=== PATIENT | male | born 1950 | race Caucasian/White ===

== ENCOUNTER → 2016-03-12 | Day surgery (SDC) | payer OTHER ==
[~2016-03-12] MED LIST: BUPIVACAINE 0.5% 30 ML SDV ONE; DEXAMETHASONE 4 MG/ML VIAL ONE; GLYCOPYRROLATE 0.2 MG/1 ML VIAL ONE; KETOROLAC 30 MG/1 ML SDV ONE; LIDOCAINE 2% 5 ML SDV ONE; MIDAZOLAM 2 MG/2 ML VIAL ONE; ONDANSETRON 4 MG/2 ML VIAL ONE; PROPOFOL/EMULSION 500 MG/50 ML BOTTLE IV ONE; ROCURONIUM 50 MG/5 ML VIAL ONE; SUGAMMADEX SODIUM 200 MG/2 ML VIAL IVP ONE; ceFAZolin 2 GM/DEXTROSE 100 ML IV ONE; epHEDrine SULFATE 10 MG/ML SYR ONE; fentaNYL 100 MCG/2 ML INJ ONE
[2016-03-12 13:06] LABS: ANION GAP 6 mEq/L (8-16); CARBON DIOXIDE 26 mEq/l (22-31); CHLORIDE 107 mEq/L (97-110); CREATININE 0.8 mg/dL (0.7-1.3); GLOMERULAR FILTRATION RATE > 60; GLUCOSE 89 mg/dL (70-100); POTASSIUM 4.3 mEq/L (3.5-5.2); SODIUM 139 mEq/L (134-144)
--- NOTE | 2016-03-12 13:54 | ECHO ---
[id number] + + [id number] : : [place] [id number] : : [phone] + + Adult Echocardiographic Report + + :Name: LON PAGAN JStudy Date: 03/12/2016 01:01 PM BP: 186/87 mmHg : : Hospital Admission Number: [id number] Location: [facility] 22: :: 1950 Gender: Male Height: 71 in : :Age: 66 yrs Race: WH Weight: 180 lb : :Reason For Study: loud [id number]; r/o : : BSA: 2.0 meters2 : :History: hypertensive and loud murmur pre-op : + + MMode/2D Measurements & Calculations IVSd: 1.1 cm RVDd: 3.8 cm FS: 31.7 % Ao root diam: LVPWd: 0.98 cm LVIDd: 4.6 cm EDV(Teich): 96.1 ml2.9 cm LVIDs: 3.1 cm ESV(Teich): 38.7 ml EF(Teich): 59.8 % LVOT diam: 2.1 cmLVLd ap4: 8.3 cm SV(MOD-sp4): LVOT area: EDV(MOD-sp4): 83.0 ml 3.5 cm2 130.0 ml LVLs ap4: 6.9 cm ESV(MOD-sp4): 47.0 ml EF(MOD-sp4): 63.8 % Normal Measurement Values: + + :LVIDd (3.5-5.7cm) IVSd (0.6-1.1cm) LVPWd (0.6-1.1cm) Aortic Root (2.0-3.7cm)Left Atrium (1.5-4.0cm): :LV Vol(d) (76-115ml) LV Vol(s) (29-48ml) Ejec Fraction (50-65%)PV Lai (0.6- 1.2m/s) TV Lai (0.4-1.0m/s) : :MV E Lai (0.8-1.0m/s)MV A Lai (0.3-1.0m/s)LVOT Lai (0.7-1.2m/s) Asc Ao Lai ( 0.9-1.8m/s) : + + Doppler Measurements & Calculations MV E max lai: Ao V2 max: AI max lai: LV V1 mean P.3 cm/sec 301.6 cm/sec 495.3 cm/sec 4.1 mmHg MV A max lai: Ao max PG: AI max P.1 mmHgLV V1 mean: 43.4 cm/sec 36.4 mmHg AI dec slope: 97.8 cm/sec MV E/A: 1.3 Ao mean P.3 cm/sec2 LV V1 VTI: MV dec time: 20.8 mmHg AI P1/2t: 528.8 msec33.6 cm 0.18 sec Ao V2 mean: 216.6 cm/sec Ao V2 VTI: 72.1 cm KISHA(I,D): 1.6 cm2 SV(LVOT): 118.0 ml PA V2 max: TR max lai: 84.2 cm/sec 185.0 cm/sec PA max PG: TR max P.7 mmHg 2.8 mmHg RAP systole: 5.0 mmHg RVSP(TR): 18.7 mmHg Left Ventricle The left ventricle is normal in size and function. There is borderline concentric left ventricular hypertrophy. Ejection Fraction = 60%. The left ventricular ejection fraction is calculated at 59.8 %. No regional wall motion abnormalities noted. Right Ventricle The right ventricle is normal in size and function. Atria The left atrial size is normal. Right atrial size is normal. Mitral Valve The mitral valve is normal in structure and function. There is mild mitral regurgitation. Tricuspid Valve The tricuspid valve is normal in structure and function. There is no tricuspid stenosis. There is trace to mild tricuspid regurgitation. Right ventricular systolic pressure is 19mmHg. Aortic Valve A bicuspid aortic valve cannot be excluded. Moderate Aortic Valve Calcification. Mild valvular aortic stenosis. Moderate aortic regurgitation. Pulmonic Valve The pulmonic valve is not well visualized. There is no pulmonic valvular regurgitation. Great Vessels The aortic root is normal size. Pericardium/Pleural There is no pericardial effusion. Conclusion A two-dimensional transthoracic echocardiogram with M-mode and Doppler was performed. (1) Left ventricular systolic ejection fraction was normal (60%) - normal wall motion (2) Borderline concentric left ventricular hypertrophy (3) Diastolic function was not assessed (4) Normal right ventricular size and function (5) Normal atrial dimensions (6) Mild mitral regurgitation (7) Uncertain morphology for the aortic valve - could be bicuspid - with mild stenosis, moderate sclerosis, and moderate insufficiency (8) Trace/mild tricuspid regurgitation - RVSP was within normal limits (9) Poor visualization of the pulmonic valve (10) No comparison echocardiograms - would have patient seen by cardiology in three months for reassessment of the valve pathology. Given the inability to visualize the morphology of the aortic valve, would consider SIN Final Reading Physician: Melissa Katz signed on 03/12/2016 01:53 PM Ordering Physician: Nj Swift Performed By: Prachi Carver
--- NOTE | 2016-03-23 20:46 | GOP ---
[f rep st] OPERATIVE REPORT DATE OF OPERATION: 03/12/2016 SURGEON: Nj Swift MD PRODUCTS MECHANICAL DESIGN ENGINEER: ARABELLA Elliott ANESTHESIA: General endotracheal. ANESTHESIOLOGIST: Dr. Stevenson. PREOPERATIVE DIAGNOSIS: Bilateral inguinal hernias. POSTOPERATIVE DIAGNOSIS: Bilateral inguinal hernias. PROCEDURE PERFORMED: Laparoscopic bilateral inguinal hernia repairs. FINDINGS: The patient was found to have bilateral direct defects, right was greater than the left. ESTIMATED BLOOD LOSS: Negligible. DESCRIPTION OF PROCEDURE: Patient taken to the operating room, where he received satisfactory gener al endotracheal anesthesia by Dr. Stevenson, placed in supine position, prepped and draped in the usua l sterile fashion. Infraumbilical incision was made. Dissection was carried down to the rectus sheath, which was incis ed. A subfascial tunnel was developed in the preperitoneal space. That was dissected free with a b alloon dissector, which was replaced with a CO2 insufflation trocar. Two other trocars were placed in the midline under direct vision. Fish's ligament was exposed bilaterally. The cords were mobilized bilaterally. Peritoneum was di ssected off the cord structures. There were no indirect sacs. Bilateral direct defects were expose d. Their contents were emptied. Bilateral Covidien polyester mesh patches were placed over the ing uinal floors and anchored in place with AbsorbaTack, securing them to Fish's ligament, the lacunar ligament, the anterior abdominal wall, and the lateral abdominal wall outside the internal ring. H emostasis was assured. Trocars were removed under direct vision, releasing the pneumopreperitoneum. Trocar sites were clos ed with 0 Vicryl for the fascia, 4-0 Monocryl subcuticular stitch for the skin. All layers were inf iltrated with 0.5% Marcaine. He was taken recovery room in good condition. There were no complications. /[id number]/MODL
== END | disposition home or self-care (01) ==
LOC: FSGY 09:46
PROVIDERS: ATTEND Surgery
PROC: 0YUA4JZ Supplement Bilateral Inguinal Region with Synthetic Substitute, Percutaneous Endoscopic Approach (ICD-10-PCS; principal; 2016-03-12 11:30)
DX: K40.91 Unilateral inguinal hernia, without obstruction or gangrene, recurrent (principal); K40.90 Unilateral inguinal hernia, without obstruction or gangrene, not specified as recurrent; I10 Essential (primary) hypertension
CPT/HCPCS: 49650; 49651; 93306; C1727; C1781; J0690; J1100; J1885; J2250; J2405; J2704; J3010

== ENCOUNTER 2017-07-16 19:56 | Observation (INO) | payer OTHER ==
[2017-07-16 20:28] LABS: PLATELET COUNT 199 10^3/uL (150-400)
--- NOTE | 2017-07-16 20:36 | EDPHY ---
H & P Smoking Status: Former smoker Time Seen by Provider: 07/16/17 20:09 HPI/ROS: CHIEF COMPLAINT: Rectal bleeding HISTORY OF PRESENT ILLNESS: 67-year-old male presents to the emergency department with rectal bleeding. The patient had a colonoscopy done by [facility], Dr. Bray, on , 2 days ago. The patient had 3 polyps removed. He was told that he might have a small amount of bleeding post procedure. He states the following day, yesterday, he had a very small bowel movement and a very small amount of blood and then today has had 2 episodes of a large amount of "pooling blood" in the toilet. Most recently was just prior to arrival. He called his development trainer and he was told to come to the emergency department for evaluation. He denies feeling lightheaded or dizzy. He states that he has had less energy today. Denies abdominal pain. No fevers or chills. No neck or back pain. REVIEW OF SYSTEMS: Constitutional: No fever, no chills. Eyes: No double or blurry vision. ENT: No sore throat. Respiratory: No cough, no shortness of breath. Cardiac: No chest pain. Gastrointestinal: No abdominal pain, vomiting or diarrhea. Genitourinary: No dysuria. Musculoskeletal: No neck or back pain. Skin: No rashes. Neurological: No headache. (Prachi De Paz) Past Medical/Surgical History: Hypertension (Zandra,Prachi M) Social History: and lives in [place] (Zandra,Prachi M) Physical Exam: General Appearance: Alert, no distress. 155/82, heart rate 56, 96% on room air. Eyes: Pupils equal and round. Extraocular motions are all intact. ENT: Mouth: Mucous membranes moist. Respiratory: No wheezing, rhonchi, or rales, lungs are clear to auscultation. Cardiovascular: Regular rate and rhythm. Gastrointestinal: Abdomen is soft and nontender, no masses, no rebound or guarding, bowel sounds normal. Neurological: Alert and oriented x 3, cranial nerves II through XII grossly intact Rectal exam: Performed with Claus Gordon, at bedside. No evidence of external hemorrhoid. Normal sphincter tone. Very small amount of bright red blood on gloved finger. No stool. Skin: Warm and dry, no rashes. Musculoskeletal: Nontender to palpate along the cervical, thoracic or lumbar spine. Neck is supple. Extremities: Full range of motion and no peripheral edema. Psychiatric: Patient is oriented X 3, there is no agitation. (Prachi De Paz) Constitutional: Initial Vital Signs Temperature (C) 36.9 C 07/16/17 20:00 Heart Rate 56 L 07/16/17 20:00 Respiratory Rate 20 07/16/17 20:00 Blood Pressure 155/82 H 07/16/17 20:00 O2 Sat (%) 95 07/16/17 20:00 O2 Delivery Mode Room Air Allergies/Adverse Reactions: No Known Allergies Allergy (Unverified 07/16/17 19:58) Home Medications: Medication Instructions Recorded Aspirin [Aspirin 81mg (*)] 81 mg PO DAILY 07/16/17 Herbals/Supplements -Info Only 1 ea PO DAILY 07/16/17 Niacin [Slo-Niacin] 1,000 mg PO DAILY 07/16/17 [place]-3 Fatty Acids [Fish Oil 1000 1,000 mg PO BID@,12 07/16/17 mg (*)] Telmisartan [Micardis 40 mg (*)] 40 mg PO DAILY 07/16/17 Medical Decision Making ED Course/Re-evaluation: 67-year-old male presents to the emergency department with rectal bleeding status post polypectomy. I spoke with the on-call development trainer, Dr. Cisco Sher, who will come in to scope the patient. I also spoke with Dr. Rafia Castanon, who was covering for Dr. Bell, primary care provider, who will admit this patient. Hematocrit 36%. Vital signs are stable. The case was discussed with Dr. Liseth Cary, secondary supervising physician, who did not directly evaluate the patient but agrees with treatment and plan. ( Prachi De Paz) Differential Diagnosis: Including but not limited to hemorrhoid, bleeding polyp, perforation, anemia ( Prachi De Paz) Other Provider: The patient was evaluated and managed by the Physician Technical Delivery Manager. I discussed the patient's presentation and course with the midlevel provider with them and agree with the evaluation. My co-signature indicates that I have reviewed this chart and I agree with the findings and plan of care as documented. I am the secondary supervising physician. I had received a call from this patient's development trainer prior to his presentation to the ED regarding his chief complaint and history. The patient is stable on arrival to the emergency department. Dr. Sher was notified and will urgently scope the patient to identified a bleeding source. (Liseth Cary ) - Data Points Laboratory Results: Laboratory Results 07/16/17 20:16 07/16/17 20:16 Medications Given: Discontinued Medications Epinephrine HCl (Epinephrine) Confirm Administered Dose 1 mg .ROUTE .STK-MED ONE Stop: 07/16/17 21:13 Last Admin: 07/16/17 23:22 Dose: 1 mg Fentanyl (Sublimaze) Confirm Administered Dose 100 mcg .ROUTE .STK-MED ONE Stop: 07/16/17 21:13 Last Admin: 07/16/17 23:23 Dose: 100 mcg Sodium Chloride (Ns) 1,000 mls @ 0 mls/hr IV ONCE ONE PRN Reason: Wide Open Stop: 07/16/17 20:57 Last Admin: 07/16/17 21:07 Dose: 1,000 mls Midazolam HCl (Versed) Confirm Administered Dose 4 mg .ROUTE .STK-MED ONE Stop: 07/16/17 21:13 Last Admin: 07/16/17 23:23 Dose: 4 mg Miscellaneous Medication (Niacin [Slo-Niacin]) 1,000 mg PO DAILY BONY Stop: 01/13/18 08:59 Last Admin: 07/17/17 08:39 Dose: Not Given Mhjen-9-Khdw Ethyl Esters (Fish Oil) 1,000 mg PO BID@08,12 BONY Stop: 01/13/18 07:59 Last Admin: 07/17/17 08:38 Dose: 1,000 mg Telmisartan (Micardis) 40 mg PO DAILY BONY Stop: 01/13/18 08:59 Last Admin: 07/17/17 08:38 Dose: 40 mg Departure - Departure Disposition: [facility] Inpatient Acute Clinical Impression: Rectal bleeding, Status post colonoscopy with polypectomy
[2017-07-16] MEDS ORDERED: NS 1,000 ML IV ONE (20:56)
[2017-07-16] MEDS ORDERED: fentaNYL 100 MCG/2 ML INJ ONE (21:12)
[2017-07-16] MEDS ORDERED: EPINEPHrine 1 MG/ML INJ ONE (21:12)
[2017-07-16] MEDS ORDERED: MIDAZOLAM 2 MG/2 ML VIAL ONE (21:12)
--- NOTE | 2017-07-16 22:19 | GCON ---
[f rep st] CONSULTATION GI CONSULTATION DATE OF CONSULTATION: 07/16/2017 REASON FOR CONSULTATION: I was kindly requested to see Robert by Prachi De Paz in consultation for a chief complaint of hematochezia. HISTORY: He is a 67-year-old white male, who underwent colonoscopy with Dr. Bray on , where he received 50 mcg of fentanyl and 2 mg of Versed. A 15 mm pedunculated polyp was found in the distal sigmoid colon, removed with a hot snare. Three other small 5 mm polyps were found in the cecum , descending colon, and transverse colon, removed with cold biopsy. Normal terminal ileum. Tonight, he began to have significant hematochezia, several episodes every hour, in large amounts, and presented to the emergency department. PAST MEDICAL HISTORY: 1. As above. 2. Hypertension. 3. Otherwise, noncontributory. ALLERGIES: No known drug allergies. SOCIAL HISTORY: He is . His 's cell phone # . OUTPATIENT MEDICATIONS: Aspirin. FAMILY HISTORY: Negative for similar bleeding. REVIEW OF SYSTEMS: Positive pertinent review of systems as per my HPI. Otherwise, complete review of systems is negative. PHYSICAL EXAM: CONSTITUTIONAL: Nontoxic, pleasant gentleman. SKIN: Warm, dry. EYES: Pupils equal, round, reactive to light and accommodation. EARS, NOSE, MOUTH, THROAT: Oropharynx without masses, moist mucosa. CARDIOVASCULAR: Normal S2, normal PMI. RESPIRATORY: Lungs clear to auscultation and percussion anteriorly. GASTROINTESTINAL: Abdomen nontender, without masses. NEUROLOGIC: Grossly nonfocal. Cranial nerves grossly intact. PSYCHIATRIC: Orientation, insight appropriate. MUSCULOSKELETAL: Strength grossly normal throughout, normal station. LABORATORIES: Include a baseline hematocrit of 44.3%, now 36.2%. Normal platelet count. Normal basic metabolic panel. ASSESSMENT: Hematochezia. Suspect a postpolypectomy bleed. PLAN: Urgent flexible sigmoidoscopy, to reach the distal sigmoid post polypectomy site, and provide endoscopic therapy, if needed. Thank you for allowing me to help in the management of the patient. /[id number]/MODL MTDD
[2017-07-16] MEDS ORDERED: D5W 1/2 NS W/ 20 KCl/L 1,000 ML IV SCH (22:30)
--- NOTE | 2017-07-16 22:40 | GIREPORT ---
[facility] Surgical Services - Endoscopy Department Patient Name: Robert Ya Procedure Date: 07/16/2017 9:08 PM Patient Type: Inpatient Attending MD/ ER Physician: Cisco Sher MD Procedure: Flexible Sigmoidoscopy Indications: Note dictated, consult appreciated. Postpolypectomy bleed. Providers: Cisco Sher MD, FACG Referring MD: Gonzalez Bell MD; Rafia Castanon MD; Shen Bray MD Medicines: Fentanyl 100 micrograms IV, Midazolam 3 mg IV Complications: No immediate complications. Description of Procedure: After obtaining informed consent, the endoscope was passed under direct vision. Throughout the procedure, the patient's blood pressure, pulse, and oxygen saturations were monitored continuously. The Endoscope was intro duced through the anus and advanced to the sigmoid colon. Findings: Active bleeding was seen at 18 cm proximal to the anus, secondary to previous polypectomy procedure, coming from below an adherent clot. Are a injected with 6 cc of 1:10,000 epi, and then clot removed. Area treated with 10 Fr bicap probe, appropriate settings on ERBE, approximately 6 two se cond pulses. Then, two ligatures were successfully placed. Bleeding had stop ped at the end of the procedure. Estimated Blood Loss: Estimated blood loss: none. Post Op Diagnosis: - Bleeding at 18 cm proximal to the anus, secondary to previous polypec leroy. Injected, cauterized and ligated, with no bleeding at procedure's end. Recommendation: - clears - serial H/Hs - IVF If Hct stable tomorrow, as I suspect, o.k. to d/c home, on outpt. iron replacement therapy x 8 weeks. Thank you for allowing me to help in the management of this patient. Attending Participation: I personally performed the entire procedure. Nikky Peck MD Cisco Sher MD 07/16/2017 10:39:23 PM This report has been signed electronicallyPeter MD Nikky Number of Addenda: 0 Note Initiated On: 07/16/2017 9:08 PM [email or web address]
[2017-07-16] MEDS ORDERED: ACETAMINOPHEN 325 MG TAB PO PRN (23:20)
[2017-07-16] MEDS ORDERED: ONDANSETRON 4 MG/2 ML VIAL IVP PRN (23:20)
[2017-07-16] MEDS ORDERED: ONDANSETRON DISINTEGRATING 4 MG TAB PO PRN (23:20)
--- NOTE | 2017-07-16 23:27 | SOAPPROG ---
SOAP Progress Note Assessment/Plan: Assessment: Plan: 07/16/17 23:38 Lower GI bleed: likely due to recent polypectomy. S/p urgent flexible sigmoidoscopy. Monitor H/H to assure adequate hemostasis. Clear liquids, IVF per Dr. Sher's recommendation. Will hold aspirin. CAD: asymptomatic disease. On supplements and will continue. Hypertension: on Micardis Hyperlipidemia: off statin as felt it affected his memory. On fish oil, niacin. Subjective: 67 yo male with hx hypertension, hyperlipidemia, and CAD underwent his first colonoscopy 2 days ago. Had 3 small biopsies and one larger biopsy in the distal sigmoid colon. Was advised that he might have some bleeding following the biopsy. Had a small amount yesterday, but then today, had multiple BMs with BRB, gradually getting worse through the day. He contacted his database security administrator who advised him to come to the emergency department. In the ED, his hct was 36.2, down from 44.3. He was taken urgently to the endoscopy suite and underwent flexible sigmoidoscopy. Clot and active bleeding was noted at the large biopsy site. Clot was removed and hemostasis obtained. He is being admitted for ongoing monitoring. Objective: Vital Signs Temp Pulse Resp BP Pulse Ox 36.9 C 52 L 18 159/77 H 99 07/16/17 20:00 07/16/17 21:09 07/16/17 23:01 07/16/17 23:01 07/16/17 23:01 07/15/17 07/16/17 07/17/17 05:59 05:59 05:59 Intake Total 550 Balance 550 General: well-appearing, alert, NAD HEENT: NC/AT. PERRL, EOMI. O/p moist, no lesions Neck: supple, no masses, adenopathy Lungs: clear bilaterally Cardiovascular: RRR with 2/6 systolic murmur heard throughout Abdomen: +bowel sounds, soft, NT, no hepatosplenomegaly, masses Rectal: deferred Skin: warm, dry, no rashes Musculoskeletal: some deformation of L ankle related to old injury Extremities: no edema, cyanosis Neuro: alert, oriented, moving all extremities. No confusion, sedation Psychiatric: normal mood, affect ICD10 Worksheet Patient Problems: Problems Problem Status Onset Rectal bleeding Acute Status post colonoscopy with polypectomy Acute
[2017-07-16] MEDS ORDERED: NS 1,000 ML IV SCH (23:45)
--- NOTE | 2017-07-17 04:40 | GHP ---
[f rep st] HISTORY AND PHYSICAL DATE OF ADMISSION: 07/16/2017 HISTORY OF PRESENT ILLNESS: The patient is a 67-year-old male with a history of hypertension, hyperl ipidemia, and coronary artery disease who underwent his first colonoscopy 2 days ago. He had 3 small biopsies and 1 larger biopsy in the proximal sigmoid colon. He was advised that he might have some bleeding following the larger biopsy. He had a small amount yesterday but then today had multiple BM s with bright red blood, gradually getting worse throughout the day. He contacted his gastroenterolo gist who advised him to come to the emergency department. In the emergency department, his hematocri t was 36.2, down from 44.3, he was taken urgently to the endoscopy suite and underwent flexible sigmo idoscopy. Clot and active bleeding was noted at the large biopsy site. The clot was removed and hem ostasis was obtained. He is being admitted for ongoing monitoring. PAST MEDICAL HISTORY: Hypertension, hyperlipidemia, pulmonary nodule, coronary artery disease. MEDICATIONS: Micardis 40 mg daily, Aged Garlic Extract 600 mg 2 capsules p.o. twice daily, vitamin K 2 100 mcg daily, niacin 500 mg twice daily, fish oil 2000 mg daily. ALLERGIES: None. PAST SURGICAL HISTORY: Ear operation, broken right ankle, hernia surgery. FAMILY HISTORY: Noncontributory. SOCIAL HISTORY: He is and is a nonsmoker. He does drink occasional alcohol. REVIEW OF SYSTEMS: GENERAL: No fever and chills. Has noted less energy today. HEENT: No visual c hanges. No sore throat or rhinitis. No dizziness. RESPIRATORY: No cough or shortness of breath. CARDIOVASCULAR: No chest pain or irregular heart rhythms. GI: No abdominal pain. No nausea, vomit ing, diarrhea, constipation, bright red blood per rectum per HPI. : No dysuria, hematuria, or inc reased frequency. MUSCULOSKELETAL: No joint pain, status post left ankle injury, old left ankle inj ury. SKIN: No rashes. NEUROLOGIC: No headaches, confusion, or weakness. PSYCH: No depression or anxiety. PHYSICAL EXAMINATION: VITAL SIGNS: Temperature 36.9, pulse 52, respirations 18, blood pressure 159/ 77, oxygen saturation 99% on room air. GENERAL: He is a well-appearing male, alert, in no acute dis tress. HEENT: Normocephalic, atraumatic. Pupils are equal, round, reactive to light. Extraocular movements are intact. Oropharynx is moist without lesions. NECK: Supple without masses or adenopat hy. LUNGS: Clear bilaterally. CARDIOVASCULAR: Regular rate and rhythm with a 2/6 systolic murmur heard throughout. ABDOMEN: Normal bowel sounds. Soft, nontender. No hepatosplenomegaly or masses noted. RECTAL: Deferred. SKIN: Warm and dry without rashes. MUSCULOSKELETAL: Some deformation o f the left ankle related to old injury. EXTREMITIES: No edema or cyanosis. NEUROLOGIC: Alert and oriented, moving all extremities. No confusion or sedation. PSYCHIATRIC: Normal mood and affect. ASSESSMENT AND PLAN: 1. Acute lower gastrointestinal bleed, likely due to recent polypectomy status post urgent flexible sigmoidoscopy. We will monitor H and H to assure adequate hemostasis, clear liquids and IV fluids pe r Dr. Sher's recommendation. We will hold aspirin. 2. Coronary artery disease, asymptomatic disease on supplements and will continue. 3. Hypertension, on Micardis and will continue. 4. Hyperlipidemia, off statin. It was felt it affected his memory, on fish oil and niacin. /[id number]/MODL
[2017-07-17 07:17] VITALS: BP 176/87
[2017-07-17] MEDS ORDERED: OMEGA-3 FATTY ACIDS 1,000 MG CAP PO SCH (08:00)
[2017-07-17] MEDS ORDERED: TELMISARTAN 40 MG TAB PO SCH (09:00)
[2017-07-17] MEDS ORDERED: Herbals/Supplements -Info Only PO SCH (09:00)
[2017-07-17] MEDS ORDERED: NIACIN 1000 MG PO SCH (09:00)
--- NOTE | 2017-07-17 11:05 | SOAPPROG ---
[facility] Progress Note Assessment/Plan: Assessment: Plan: 07/16/17 23:38 Lower GI bleed: likely due to recent polypectomy. S/p urgent flexible sigmoidoscopy. Monitor H/H to assure adequate hemostasis. Clear liquids, IVF per Dr. Sher's recommendation. Will hold aspirin. CAD: asymptomatic disease. On supplements and will continue. Hypertension: on Micardis Hyperlipidemia: off statin as felt it affected his memory. On fish oil, niacin. 07/17/17 11:03 Lower GI bleed: H/H stable x2. Hct decreased from 36.3 to 33.4 between 8pm and midnight, but stable this morning at 33.3. No further evidence of fresh bleeding. Will plan on d/c to home. He will advance diet as tolerated, starting with softer foods. Fe replacement for 8 weeks. 07/17/17 11:05 07/17/17 11:10 Subjective: Feeling well this morning. No lightheadedness, abdominal pain, chest pain. Had good BM this morning. Noted a few flecks of old blood, but no bright red blood. Has tolerated clear liquid diet. Objective: Vital Signs Temp Pulse Resp BP Pulse Ox 36.8 C 53 L 18 176/87 H 98 07/17/17 07:16 07/17/17 07:16 07/17/17 07:16 07/17/17 07:16 07/17/17 07:16 Laboratory Results 07/17/17 04:41 07/16/17 07/17/17 07/18/17 05:59 05:59 05:59 Intake Total 1100 Output Total 300 Balance 800 General: sitting up in bed, alert, comfortable. ICD10 Worksheet Patient Problems: Problems Problem Status Onset Rectal bleeding Acute Status post colonoscopy with polypectomy Acute
--- NOTE | 2017-07-17 13:52 | GDS ---
[f rep st] DISCHARGE SUMMARY DISCHARGE DIAGNOSIS: Lower gastrointestinal bleed. CONSULTATIONS: Cisco Sher MD [facility] [place], PROCEDURES: Flexible sigmoidoscopy. HOSPITAL COURSE: The patient is a 67-year-old male with a history of hypertension, hyperlipidemia, and coronary artery disease, who presented to the emergency department with rectal bleeding. He had undergone a colonoscopy with polypectomy 2 days prior to admission and had developed a small amount of bleeding initially, but then subsequently developed a large volume of bleeding. He spoke to his gastroenterogist who advised him to come to the ED. He was taken urgently to the endoscopy suite and underwent flexible sigmoidoscopy with cauterization and ligation at site of previous polypectomy. This morning his hematocrit is stable. He has tolerated clear liquids and had a normal bowel movement with only a little bit of old bleeding. No evidence of fresh bleeding , and he is feeling well and ready for discharge. He will advance his diet as tolerated beginning with soft foods. He will take oral iron daily for 8 weeks and follow up with his primary care physician. /[id number]/MODL MTDD
== END 2017-07-17 12:16 | disposition home or self-care (01) ==
LOC: F3E 23:10
PROVIDERS: ADMIT Internal Medicine; ATTEND Internal Medicine
PROC: 0D5N8ZZ Destruction of Sigmoid Colon, Via Natural or Artificial Opening Endoscopic (ICD-10-PCS; principal; 2017-07-16 21:30)
DX: K91.840 Postprocedural hemorrhage of a digestive system organ or structure following a digestive system procedure (principal); I10 Essential (primary) hypertension; E78.5 Hyperlipidemia, unspecified; I25.10 Atherosclerotic heart disease of native coronary artery without angina pectoris; Z87.891 Personal history of nicotine dependence; Z86.010 Personal history of colon polyps
CPT/HCPCS: 45334; G0378; J0171; J2250; J3010